=== PATIENT | male | born 1940 | race African-American/Black ===

== ENCOUNTER 2016-04-13 14:32 | Emergency (ER) | payer MEDICARE ==
--- NOTE | 2016-04-13 15:22 | Emergency Department Record ---
History of Present Illness - General Chief complaint: Extremity Problem Stated complaint: LEFT ELBOW PAIN Source: Patient, Family Mode of Arrival: Ambulatory Limitations: No limitations - History of Present Illness Initial comments: 76 yo male presents with left tender swallow area at the elbow. The onset was . He denies and injury. The area posterior and lateral to the left elbow has become tender, some swelling, and mildly red. No streaking up the arm. No history of bursitis or gout in the past. No fevers or chills. No nausea or vomiting. No shoulder pain. He has full range of the left elbow without significant discomfort. PCP is Sheryl Onset/Timin -: Days(s) Location: Left, Elbow History of Same: No Radiation: None Severity scale (1-10): 7 Quality: Aching Consistency: Constant Improves with: Nothing Worsens with: Nothing Associated Symptoms: Denies other symptoms - Related Data Home Medications Medication Instructions Recorded Confirmed Last Taken Amlodipine Besylate [Amlodipine 2.5 mg PO QHS 04/13/16 04/13/16 04/12/16 Besylate] Aspirin [Adult Low Dose Aspirin EC] 81 mg PO DAILY 04/13/16 04/13/16 04/13/16 Brimonidine Tartrate [Alphagan P] 1 drop EACH EYE ASDIR 04/13/16 04/13/16 Dexlansoprazole [Dexilant] 60 mg PO ASDIR 04/13/16 04/13/16 04/13/16 Dorzolamide HCl/Timolol Maleat 1 drop EACH EYE ASDIR 04/13/16 04/13/16 04/13/16 [Dorzolamide-Timolol Eye Drops] Imatinib Mesylate [Gleevec] 400 mg PO ASDIR 04/13/16 04/13/16 04/13/16 Latanoprost [Latanoprost] 1 drop EACH EYE ASDIR 04/13/16 04/13/16 04/13/16 Previous Rx's Medication Instructions Recorded Clindamycin HCl [Cleocin HCl] 300 mg PO TID #21 capsule 04/13/16 Allergies Allergy/AdvReac Type Severity Reaction Status Date / Time codeine AdvReac NAUSEA Verified 04/13/16 14:55 Travel Screening - Travel/Exposure Within Last 30 Days Have you traveled within the last 30 days?: No - Travel/Exposure Within Last Year Have you traveled outside the [place] in the last year?: No - Additonal Travel Details Have you been exposed to anyone with a communicable illness?: No - Travel Symptoms Symptom Screening: None Review of Systems Constitutional: Denies: Chills, Fever, Malaise, Weakness Eyes: Denies: Eye discharge, Eye pain, Photophobia, Vision change ENT: Denies: Congestion, Throat pain Respiratory: Denies: Cough, Dyspnea, Hemoptysis, Stridor, Wheezes Cardiovascular: Denies: Chest pain, Palpitations, Syncope Endocrine: Denies: Fatigue Gastrointestinal: Denies: Abdominal pain, Diarrhea, Nausea, Vomiting Genitourinary: Denies: Frequency, Hematuria Musculoskeletal: Reports: As per HPI, Arthralgia. Denies: Back pain, Joint swelling, Myalgia, Neck pain Skin: Reports: As per HPI, Change in color Neurological: Denies: Confusion, Headache Psychiatric: Denies: Anxiety, Suicidal thoughts Hematological/Lymphatic: Denies: Easy bleeding, Easy bruising, Swollen glands Past Medical History - SOCIAL HISTORY Smoking Status: Former smoker Alcohol Use: None Drug Use: None - RESPIRATORY Hx Respiratory Disorders: Yes Hx Sleep Apnea: Yes Hx of CPAP: Yes - CARDIOVASCULAR Hx Cardio Disorders: Yes Hx Cardiac Cath: Yes Hx Hypertension: Yes - NEURO Hx Neuro Disorders: Yes Comment:: legally blind d/t glaucoma - GI Hx GI Disorders: Yes Hx Reflux: Yes Hx Wt Loss/Wt Gain: Yes (loss of 30 #'s in year) Hx of Polyps: Yes Comment:: unintentional weight loss - Hx Genitourinary Disorders: Yes Hx Prostate Problems: Yes - ENDOCRINE Hx Endocrine Disorders: Yes - MUSCULOSKELETAL Hx Musculoskeletal Disorders: Yes Hx Arthritis: Yes - PSYCH Hx Psych Problems: No - HEMATOLOGY/ONCOLOGY Hx Hematology/Oncology Disorders: Yes Hx Cancer: Yes (CML) Hx Chemotherapy: Yes Family Medical History Any Significant Family History?: Yes Hx Cancer: Father *Cancer Comment: father-lung Physical Exam - General General Appearance: Alert, Oriented x3, Cooperative, No acute distress Limitations: No limitations - Head Head exam: Normal inspection - Eye Eye exam: Normal appearance, PERRL. negative: Conjunctival injection, Periorbital swelling - ENT ENT exam: Normal exam Ear exam: Normal external inspection Nasal Exam: Normal inspection Mouth exam: Normal external inspection Teeth exam: Normal inspection Throat exam: Normal inspection - Neck Neck exam: Normal inspection, Full ROM. negative: Tenderness - Respiratory Respiratory exam: Normal lung sounds bilaterally. negative: Respiratory distress - Cardiovascular Cardiovascular Exam: Regular rate, Normal rhythm, Normal heart sounds - Rectal Rectal exam: Deferred - exam: Deferred - Extremities Extremities exam: Full ROM (full ROM with any limitation or pain), Joint swelling, Normal capillary refill, Tenderness. negative: Normal inspection ( mild postrior elbow erythema and swelling, the bursa area is only minimally swollen) Image of Full Body: 1 - see inspection, mild erythema, mild bursal swelling, no fluctuance - Back Back exam: Reports: Normal inspection, Full ROM. Denies: Muscle spasm, Rash noted, Tenderness - Neurological Neurological exam: Alert, Normal gait, Oriented X3, Reflexes normal - Psychiatric Psychiatric exam: Normal affect, Normal mood - Skin Skin exam: Erythema Course Vital Signs 04/13/16 15:02 Temperature 98.9 F Pulse Rate 66 Respiratory 16 Rate Blood Pressure 128/88 Pulse Ox 97 - Reevaluation(s) Reevaluation #1: The CBC was reviewed WBC count is 3.0, this is similar to prior counts in the EMR 04/13/16 16:10 Reevaluation #2: XR reviewed. No bony abnormality, no effusion, soft tissue swelling noted. 04/13/16 16:52 Reevaluation #3: Labs reviewed No acute changes of the uric acid or CMP CRP mildly increased to 3.3 The patient was given antibiotics in the ED I recommend he call his PCP tomorrow for a recheck this week If not improved he may need an orthopedic referral. 04/13/16 17:13 Medical Decision Making - Lab Data Result diagrams: 04/13/16 15:57 04/13/16 15:57 Disposition Disposition: Discharge Clinical Impression: Bursitis Cellulitis Qualifiers: Site of cellulitis: extremity Site of cellulitis of extremity: upper extremity Laterality: left Qualified Code(s): L03.114 - Cellulitis of left upper limb Disposition: Home, Self-Care Condition: (1) Good Instructions: Cellulitis (ED), Elbow Bursitis (ED) Additional Instructions: Ice the elbow 2-3 times daily for 20 minutes Keep the area protected or padded if necessary Call your doctor tomorrow for close follow up You may need an orthopedic referral if not improving Prescriptions: Clindamycin HCl [Cleocin HCl] 300 mg PO TID #21 capsule Forms: Patient Portal Access Time of Disposition: 16:56
[2016-04-13 16:01] LABS: BASO % 0.3 % (0-6); EOS % 5.4 % (0-6); GRAN % 54.3 % (47-80); HEMATOCRIT 31.8 % (42.0-52.0); HEMOGLOBIN 10.8 gm/dl (14.0-18.0); LYMPH % 27.8 % (16-45); MEAN CELL VOLUME 106.4 fl (81-97); MEAN CORPUSCULAR HEMOGLOBIN 36.1 pg (27-33); MEAN PLATELET VOLUME 9.1 fl (7.4-10.4); MONO % 12.2 % (0-9); PLATELET COUNT 115 K/uL (130-400); RED BLOOD COUNT 2.99 M/uL (4.40-5.70); RED CELL DISTRIBUTION WIDTH 15.1 % (11.5-14.5)
[2016-04-13] MEDS ORDERED: CLINDAMYCIN 150 MG CAP PO ONE ×2 (16:10→17:21)
== END 2016-04-13 17:34 | disposition home or self-care (01) ==
LOC: ER 14:32
DX: L03.114 Cellulitis of left upper limb (principal); M70.32 Other bursitis of elbow, left elbow
CPT/HCPCS: 80048; 84550; 85025; 86140; 99283; 99284

== ENCOUNTER 2016-05-08 10:12 | Day surgery (SDC) | payer MEDICARE ==
[2016-05-08] MEDS ORDERED: PROPOFOL 10 MG/ML VIAL IV ONE (14:00)
[2016-05-08] MEDS ORDERED: FENTANYL PF 100MCG/2ML VIAL IV ONE (14:00)
[2016-05-08] MEDS ORDERED: LIDOCAINE 2% MDV (20MG/ML) 20ML VIAL IV ONE (14:00)
[2016-05-08 16:18] LABS: BLOOD UREA NITROGEN 12 mg/dL (9-20); CREATININE 1.1 mg/dL (0.66-1.25); EST GLOMERULAR FILTRATION RATE > 60 ml/min
--- NOTE | 2016-05-13 10:20 | Operative Note ---
DATE OF SURGERY: 05/08/2016 OPERATION: ESOPHAGOGASTRODUODENOSCOPY with biopsy. PREOPERATIVE DIAGNOSIS: Anorexia, weight loss, and dyspepsia. POSTOPERATIVE DIAGNOSIS: Moderate nonerosive gastritis, otherwise normal upper endoscopy. PROCEDURE: After informed consent was obtained from the patient, he was placed in the left lateral decubitus position in the endoscopy suite, sedated and monitored by the department of anesthesia. A well-lubricated [id number] gastroscope was placed in the posterior oropharynx and under direct visualization passed to the proximal esophagus. The endoscope was advanced through the proximal, mid, and distal esophagus. The GE junction and esophagus were unremarkable. The gastric body and the antrum demonstrated [id number] diffuse patchy erythema which involved primarily the body and antrum. The pylorus, duodenal bulb, and sweep were unremarkable. J-turn views of the proximal stomach were unrevealing. The endoscope was then straightened. Antral and distal gastric body biopsies were obtained. The endoscope was removed from the patient with no new findings noted. RECOMMENDATIONS: We will discuss further imaging possibilities with the patient but given his persistent dyspepsia and weight loss, further testing seems reasonable. As always, thank you for allowing me to participate in the healthcare of your patients. Tom Mae DO CC: Dr. Vita DOLL
== END 2016-05-08 12:56 | disposition home or self-care (01) ==
LOC: HOP 10:12
PROVIDERS: ATTEND Internal Medicine Gastroenterology
DX: K29.30 Chronic superficial gastritis without bleeding (principal); R10.13 Epigastric pain; R63.0 Anorexia; I10 Essential (primary) hypertension; C95.90 Leukemia, unspecified not having achieved remission
CPT/HCPCS: 84520; 82565; 43239; 00740; J3010

== ENCOUNTER 2016-11-03 17:30 | Emergency (ER) | payer MEDICARE ==
--- NOTE | 2016-11-03 18:30 | Emergency Department Record ---
History of Present Illness - General Chief complaint: ENT Stated complaint: LT EAR RINGING Time Seen by Provider: 11/03/16 18:21 Source: Patient Mode of Arrival: Ambulatory Limitations: No limitations - History of Present Illness Initial comments: 76 yo male presents to ED with a CC of ringing in the left ear for the past 1-2 days. Patient reports that he noticed decreased hearing in the left ear about 3 days ago, ringing began this afternoon while on the phone. Patient denies drainage from the ear or trauma to the ear, reports that he only takes a baby ASA daily when asked about aspirin use. Patient is currently undergoing chemo for leukemia. Onset/Timin -: Days(s) Location: L ear Severity: Mild Consistency: Intermittent Improves with: None Worsens with: None Associated Symptoms: Hearing loss - Related Data Home Medications Medication Instructions Recorded Confirmed Last Taken Finasteride [Proscar] 5 mg PO DAILY 11/03/16 11/03/16 11/03/16 Tamsulosin HCl [Flomax] 0.4 mg PO DAILY 11/03/16 11/03/16 11/03/16 Allergies Allergy/AdvReac Type Severity Reaction Status Date / Time codeine AdvReac NAUSEA Verified 11/03/16 18:13 Travel Screening - Travel/Exposure Within Last 30 Days Have you traveled within the last 30 days?: No Review of Systems Constitutional: Denies: Chills, Fever, Malaise, Night sweats Eyes: Denies: Eye discharge, Eye pain ENT: Reports: Other (ringing in the ear). Denies: Congestion, Ear pain, Epistaxis Respiratory: Denies: Cough, Dyspnea Cardiovascular: Denies: Chest pain, Dyspnea on exertion Endocrine: Denies: Fatigue, Heat or cold intolerance Gastrointestinal: Denies: Nausea, Vomiting Genitourinary: Denies: Incontinence, Retention Musculoskeletal: Denies: Arthralgia, Back pain, Gout, Joint swelling Skin: Denies: Bruising, Change in color Neurological: Denies: Abnormal gait, Confusion, Headache, Tingling Psychiatric: Denies: Anxiety Hematological/Lymphatic: Denies: Anemia, Blood Clots Past Medical History - SOCIAL HISTORY Smoking Status: Former smoker Alcohol Use: None Drug Use: None - RESPIRATORY Hx Respiratory Disorders: Yes Hx Sleep Apnea: Yes Hx of CPAP: Yes - CARDIOVASCULAR Hx Cardio Disorders: Yes Hx Cardiac Cath: Yes Hx Hypertension: Yes - NEURO Hx Neuro Disorders: Yes Comment:: legally blind d/t glaucoma - GI Hx GI Disorders: Yes Hx Reflux: Yes Hx Wt Loss/Wt Gain: Yes Hx of Polyps: Yes - Hx Genitourinary Disorders: Yes Hx Prostate Problems: Yes - ENDOCRINE Hx Endocrine Disorders: No - MUSCULOSKELETAL Hx Musculoskeletal Disorders: Yes Hx Arthritis: Yes - PSYCH Hx Psych Problems: No - HEMATOLOGY/ONCOLOGY Hx Hematology/Oncology Disorders: Yes Hx Cancer: Yes (CML) Hx Chemotherapy: Yes Family Medical History Any Significant Family History?: Yes Hx Cancer: Father *Cancer Comment: father-lung Physical Exam - General General Appearance: Alert, Oriented x3, Cooperative, No acute distress Limitations: No limitations - Head Head exam: Atraumatic, Normocephalic, Normal inspection Head exam detail: negative: Abrasion, Contusion, Meade's sign, General tenderness, Hematoma, Laceration - Eye Eye exam: Normal appearance. negative: Conjunctival injection, Periorbital swelling, Periorbital tenderness, Scleral icterus - ENT Ear exam: Other (TMs appear normal in color, intact, mild fluid behind the TMs bilaterally. Very little cerumen left.). negative: Auricular hematoma, Auricular trauma Nasal Exam: negative: Active bleeding, Discharge, Dried blood, Foreign body Mouth exam: negative: Drooling, Laceration, Muffled voice, Tongue elevation - Neck Neck exam: Normal inspection. negative: Meningismus, Tenderness - Respiratory Respiratory exam: Normal lung sounds bilaterally. negative: Respiratory distress, Rhonchi, Stridor, Wheezes - Cardiovascular Cardiovascular Exam: Regular rate, Normal rhythm, Normal heart sounds - GI/Abdominal GI/Abdominal exam: Soft. negative: Rebound, Rigid, Tenderness - Rectal Rectal exam: Deferred - exam: Deferred - Extremities Extremities exam: Normal inspection. negative: Tenderness - Back Back exam: Denies: CVA tenderness (R), CVA tenderness (L) - Neurological Neurological exam: Alert, Normal gait, Oriented X3 - Psychiatric Psychiatric exam: Normal affect, Normal mood - Skin Skin exam: Normal color. negative: Abrasion Type of lesion: negative: abrasion Course Vital Signs 11/03/16 18:10 Temperature 97.9 F Pulse Rate 68 Respiratory 16 Rate Blood Pressure 130/73 Pulse Ox 97 - Reevaluation(s) Reevaluation #1: 11/03/16 18:35 Patient was seen and examined, other than mild fluid behind the TMs bilaterally , TMs appear normal. Offered to perform ASA level, patient declined stating he often doesn't take his baby ASA daily. Will refer to Dr. Guzman (ENT) for further evaluation of his symptoms. Patient and family agree with the plan of care as discussed. Disposition Disposition: Discharge Clinical Impression: Tinnitus, left Disposition: Home, Self-Care Condition: (2) Stable Instructions: Tinnitus (ED) Additional Instructions: Return to ED if your symptoms worsen or if you have any concerns. Call Dr. Guzman for a follow-up appointment regarding your tinnitis. YTou may try antihistamine medications which may improve the drainage of fluid behind the ear drum. Referrals: [facility] [Provider Group] ANISA GUZMAN [DOCTOR OF OSTEOPATH] - Forms: Patient Portal Access Time of Disposition: 18:30 Quality - Quality Measures Quality Measures: N/A - Blood Pressure Screening Does Patient Have Any of the Following: No Blood Pressure Classification: Pre-Hypertensive BP Reading Systolic Measurement: 130 Diastolic Measurement: 73 Screening for High Blood Pressure: < Pre-Hypertensive BP, F/U Documented > [ [id number]] Pre-Hypertensive Follow-up Interventions: Referral to alternative/primary care provider.
== END 2016-11-03 18:51 | disposition home or self-care (01) ==
LOC: ER 17:30
DX: H93.12 Tinnitus, left ear (principal)
CPT/HCPCS: 99282

== ENCOUNTER 2016-11-29 16:13 | Emergency (ER) | payer MEDICARE ==
[2016-11-29] MEDS ORDERED: 0.9 % SODIUM CHLORIDE 1000ML 1,000 ML IV SCH (16:30)
--- NOTE | 2016-11-29 16:31 | Emergency Department Record ---
History of Present Illness - General Chief Complaint: Dizziness Stated Complaint: DIZZY Time Seen by Provider: 11/29/16 16:27 Source: Patient Mode of Arrival: EMS Limitations: No limitations - History of Present Illness Initial Comments: 76 yo male presents to ED for evaluation of sudden onset dizziness that began approximately 1.5 hours ago while walking to the mailbox. Patient reports that he was able to sit down with improvement of his symptoms. Patient denies recent illness, headache, or focal weakness on examination. Patient does however report minor "fluttering" in his chest around the time that his symptoms began. Complaint: Dizziness Onset/Timin -: Hour(s) Timing: Sudden onset Description: Difficulty walking, Lightheadedness, Off-balance History of Same: No History of Trauma: No Severity: Moderate Improves With: Rest Worsens With: Position - [place] Coma Scale Eye Response: (4) Open spontaneously Motor Response: (6) Obeys commands Verbal Response: (5) Oriented [place] Total: 15 - Symptoms of Stroke Onset of Symptoms Date: 11/29/16 Onset of Symptoms Time: 15:40 Symptom Onset Unknown: Yes Symptoms of stroke: Dizziness, Unable to Walk - Related Data Allergies Allergy/AdvReac Type Severity Reaction Status Date / Time codeine AdvReac NAUSEA Verified 11/29/16 16:23 Travel Screening - Travel/Exposure Within Last 30 Days Have you traveled within the last 30 days?: No - Travel/Exposure Within Last Year Have you traveled outside the [place] in the last year?: No - Additonal Travel Details Have you been exposed to anyone with a communicable illness?: No - Travel Symptoms Symptom Screening: None Review of Systems Constitutional: Denies: Chills, Fever, Malaise, Night sweats Eyes: Denies: Eye discharge, Eye pain ENT: Denies: Congestion, Ear pain, Epistaxis Respiratory: Denies: Cough, Dyspnea Cardiovascular: Reports: Palpitations. Denies: Chest pain, Dyspnea on exertion Endocrine: Denies: Fatigue, Heat or cold intolerance Gastrointestinal: Denies: Nausea, Vomiting Genitourinary: Denies: Incontinence, Retention Musculoskeletal: Denies: Arthralgia, Back pain, Gout, Joint swelling Skin: Denies: Bruising, Change in color Neurological: Denies: Abnormal gait, Confusion, Headache, Seizure Psychiatric: Denies: Anxiety Hematological/Lymphatic: Denies: Anemia, Blood Clots Past Medical History - SOCIAL HISTORY Smoking Status: Former smoker Alcohol Use: None Drug Use: None - RESPIRATORY Hx Respiratory Disorders: Yes Hx Sleep Apnea: Yes Hx of CPAP: Yes - CARDIOVASCULAR Hx Cardio Disorders: Yes Hx Cardiac Cath: Yes (no stent) Hx Hypertension: Yes - NEURO Hx Neuro Disorders: Yes Comment:: legally blind d/t glaucoma - GI Hx GI Disorders: Yes Hx Reflux: Yes Hx Wt Loss/Wt Gain: Yes Hx of Polyps: Yes - Hx Genitourinary Disorders: Yes Hx Prostate Problems: Yes - ENDOCRINE Hx Endocrine Disorders: No - MUSCULOSKELETAL Hx Musculoskeletal Disorders: Yes Hx Arthritis: Yes - PSYCH Hx Psych Problems: No - HEMATOLOGY/ONCOLOGY Hx Hematology/Oncology Disorders: Yes Hx Cancer: Yes (CML) Hx Chemotherapy: Yes (last night) Family Medical History Any Significant Family History?: Yes Hx Cancer: Father *Cancer Comment: father-lung Physical Exam - General General Appearance: Alert, Oriented x3, Cooperative, Mild distress Limitations: No limitations - Head Head exam: Atraumatic, Normocephalic, Normal inspection Head exam detail: negative: Abrasion, Contusion, Meade's sign, General tenderness, Hematoma, Laceration - Eye Eye exam: Normal appearance. negative: Conjunctival injection, Periorbital swelling, Periorbital tenderness, Scleral icterus - ENT Ear exam: negative: Auricular hematoma, Auricular trauma Nasal Exam: negative: Active bleeding, Discharge, Dried blood, Foreign body Mouth exam: negative: Drooling, Laceration, Muffled voice, Tongue elevation - Neck Neck exam: Normal inspection. negative: Meningismus, Tenderness - Respiratory Respiratory exam: Normal lung sounds bilaterally. negative: Rales, Respiratory distress, Rhonchi, Stridor - Cardiovascular Cardiovascular Exam: Normal rhythm, Normal heart sounds, Bradycardia - GI/Abdominal GI/Abdominal exam: Soft. negative: Rebound, Rigid, Tenderness - Rectal Rectal exam: Deferred - exam: Deferred - Extremities Extremities exam: Normal inspection. negative: Calf tenderness, Pedal edema, Tenderness - Back Back exam: Denies: CVA tenderness (R), CVA tenderness (L) - Neurological Neurological exam: Alert, CN II-XII intact, Normal gait, Oriented X3. negative : Motor sensory deficit - Psychiatric Psychiatric exam: Normal affect, Normal mood - Skin Skin exam: Normal color. negative: Abrasion Type of lesion: negative: abrasion Course Vital Signs 10/21/17 10/21/17 16:14 16:26 Temperature 98.6 F Pulse Rate 44 L Pulse Rate [ 46 L Pulse Ox Probe] Respiratory 20 18 Rate Blood Pressure 142/74 Blood Pressure 135/74 [Right Arm] Pulse Ox 100 98 - Reevaluation(s) Reevaluation #1: 11/29/16 16:53 Labs reviewed, WBC 1.9, Hgb 10.6, HCT 31, Platelets 120. Labs are otherwise grossly unremarkable for an acute process. Will initiate transfer to [facility] for further evaluation of his symptomatic bradycardia. Reevaluation #2: 11/29/16 17:23 Case was discussed with Dr. Watson at [facility], will accept transfer for further evaluation. Medical Decision Making - Lab Data Result diagrams: 11/29/16 16:30 11/29/16 16:30 Disposition Disposition: Transfer Clinical Impression: Bradycardia, Pancytopenia Leukemia Qualifiers: Leukemia type: unspecified Leukemia Active/Remission status: without remission Qualified Code(s): C95.90 - Leukemia, unspecified not having achieved remission Disposition: Acute Care Hospital Transfer Transfer To: [facility] Reason For Transfer: Symptomatic bradycardia Accepting Physician: Walter Time Discussed w/Accepting Physician: 17:24 Condition: (3) Guarded Forms: Patient Portal Access Time of Disposition: 17:24 Quality - Quality Measures Quality Measures: N/A - Blood Pressure Screening Does Patient Have Any of the Following: Active Dx of HTN Blood Pressure Classification: Hypertensive Reading Systolic Measurement: 142 Diastolic Measurement: 74 Screening for High Blood Pressure: Patient Exclusion, Hx of HTN [G9744]
[2016-11-29 16:40] LABS: BASO % 1.5 % (0-6); EOS % 6.7 % (0-6); GRAN % 40.3 % (47-80); HEMATOCRIT 31.6 % (42.0-52.0); HEMOGLOBIN 10.6 gm/dl (14.0-18.0); LYMPH % 38.1 % (16-45); MEAN CELL VOLUME 104.3 fl (81-97); MEAN CORPUSCULAR HGB CONC 33.5 g/dl (32-36); MONO % 13.4 % (0-9); PLATELET COUNT 120 K/uL (130-400); RED BLOOD COUNT 3.03 M/uL (4.40-5.70); RED CELL DISTRIBUTION WIDTH 14.2 % (11.5-14.5); WHITE BLOOD COUNT W/O DIFF 1.9 K/uL (4.2-12.2)
[2016-11-29 16:41] LABS: MEAN CORPUSCULAR HEMOGLOBIN 34.9 pg (27-33)
[2016-11-29 17:01] LABS: ALB/GLOB RATIO 1.3 (1.1-1.8); ALBUMIN 3.1 g/dL (4.0-5.0); ALKALINE PHOSPHATASE 69 U/L (40-129); ALT/SGPT 14 U/L (<41); AST/SGOT 24 U/L (10.0-50.0); BLOOD UREA NITROGEN 12 mg/dL (8-23); EST GLOMERULAR FILTRATION RATE > 60 mL/min; GLUCOSE,RANDOM 106 mg/dL (74-109); TOTAL PROTEIN 5.4 g/dL (6.6-8.7)
== END 2016-11-29 18:50 | disposition short-term general hospital (02) ==
LOC: ER 16:13
DX: R00.1 Bradycardia, unspecified (principal); D61.818 Other pancytopenia; R42 Dizziness and giddiness; R26.2 Difficulty in walking, not elsewhere classified; I10 Essential (primary) hypertension; C92.10 Chronic myeloid leukemia, BCR/ABL-positive, not having achieved remission; Z87.891 Personal history of nicotine dependence
CPT/HCPCS: 80053; 83735; 84484; 85025; 93005; 93010; 96360; 99285; J7030

== ENCOUNTER 2017-08-20 10:09 | Day surgery (SDC) | payer MEDICARE ==
[2017-08-20] MEDS ORDERED: LIDOCAINE 1% MDV (10MG/ML) 20ML VIAL SQ ONE (10:10)
[2017-08-20] MEDS ORDERED: PROPOFOL 10 MG/ML VIAL IV ONE (10:10)
--- NOTE | 2017-08-21 12:50 | Operative Note ---
DATE OF SURGERY: 08/20/2017 OPERATION: COLONOSCOPY with cold forceps polypectomy x2. PREOPERATIVE DIAGNOSIS: Personal history of colon polyps. POSTOPERATIVE DIAGNOSIS: Transverse colon polyp and descending colon polyp, each removed with a cold forceps. PREPARATION QUALITY: Good. ESTIMATED BLOOD LOSS: Minimum. SPECIMENS: As aforementioned. COMPLICATIONS: None apparent. PROCEDURE: After informed consent was obtained from the patient, he was placed in the left lateral decubitus position in the endoscopy suite, sedated and monitored by the department of anesthesia. Digital rectal exam was performed which was unremarkable. A well-lubricated [id number] colonoscope was inserted into the rectum and advanced to the cecum. Preparation quality was good. The cecum, ileocecal valve, appendiceal orifice, and ascending colon were unremarkable. In the transverse colon there was a diminutive polyp removed with a cold forceps. The remainder of the transverse colon was unremarkable. The descending colon revealed another diminutive polyp removed with a cold forceps. The remainder of the descending colon and sigmoid colon and rectum were unremarkable. J-turn views of the anorectum were unremarkable. The endoscope was straightened, the rectal ampulla deflated, and the endoscope was removed. RECOMMENDATIONS: The patient should resume his medications and diet. Further recommendations will be forthcoming once tissue histology is available. At this point, I anticipate a repeat colonoscopy in 5 years. As always, thank you for allowing me to participate in the healthcare of your patients. CC: Sunday Khan MD [facility]
== END 2017-08-20 12:36 | disposition home or self-care (01) ==
LOC: HOP 10:09
PROVIDERS: ATTEND Internal Medicine Gastroenterology
DX: Z12.11 Encounter for screening for malignant neoplasm of colon (principal); Z86.010 Personal history of colon polyps; D12.3 Benign neoplasm of transverse colon; D12.4 Benign neoplasm of descending colon; I10 Essential (primary) hypertension; K21.9 Gastro-esophageal reflux disease without esophagitis; C95.90 Leukemia, unspecified not having achieved remission

== ENCOUNTER 2018-10-22 13:30 | Emergency (ER) | payer MEDICARE ==
[2018-10-22] MEDS ORDERED: Diph,Pert(Acell),Tet Vac 0.5 ML SYR IM ONE (13:46)
--- NOTE | 2018-10-22 13:49 | Emergency Department Record ---
History of Present Illness - General Chief Complaint: Fall Injury Stated Complaint: FULL INJURY-LACERATION Time Seen by Provider: 10/22/18 13:32 Source: Patient Mode of Arrival: Wheelchair Limitations: No limitations - History of Present Illness Initial Comments: The patient is here due to tripping and falling at home a half hour ago and hitting his chin on the dresser sustaining a laceration under the R chin. He denies any head injury, neck pain, LOC, CUELLAR, or any other injury. His td is not utd. MD Complaint: Fall Onset/Timin -: Minutes(s) Fall From: Standing When Fall Occurred: Just prior to arrival Fall Witnessed: Yes, by family Place Fall Occurred: Home Loss of Consciousness: None Prolonged Down Time?: No Symptoms Prior to Fall: None Location: Face Severity: Mild Severity scale (1-10): 1 Context: Tripped/slipped Associated Symptoms: Denies - [place] Coma Scale Eye Response: (4) Open spontaneously Motor Response: (6) Obeys commands Verbal Response: (5) Oriented [place] Total: 15 - Related Data Previous Rx's Medication Instructions Recorded Cephalexin [Keflex] 500 mg PO TID #15 cap 10/22/18 Allergies Allergy/AdvReac Type Severity Reaction Status Date / Time ciprofloxacin Allergy Severe DIZZINESS Unverified 08/31/18 15:46 codeine AdvReac NAUSEA Unverified 08/31/18 15:46 Travel Screening - Travel/Exposure Within Last 30 Days Have you traveled within the last 30 days?: No - Travel/Exposure Within Last Year Have you traveled outside the [place] in the last year?: No - Additonal Travel Details Have you been exposed to anyone with a communicable illness?: No - Travel Symptoms Symptom Screening: None Review of Systems Constitutional: Denies: Chills, Fever Past Medical History - SOCIAL HISTORY Smoking Status: Former smoker Alcohol Use: None Drug Use: None - RESPIRATORY Hx Respiratory Disorders: Yes Hx Sleep Apnea: Yes Hx of CPAP: Yes Comment:: fluid on lungs from medication- Gleevec, drained last week at [facility] - CARDIOVASCULAR Hx Cardio Disorders: Yes Hx Cardiac Cath: Yes (no stent) Hx Chest Pain: Yes (fluid lungs, as above, resolved) Hx Hypertension: Yes - NEURO Hx Neuro Disorders: Yes Comment:: legally blind d/t glaucoma - GI Hx GI Disorders: Yes Hx Wt Loss/Wt Gain: Yes - Hx Genitourinary Disorders: Yes Hx Prostate Problems: Yes - ENDOCRINE Hx Endocrine Disorders: No - MUSCULOSKELETAL Hx Musculoskeletal Disorders: Yes Hx Arthritis: Yes - PSYCH Hx Psych Problems: No - HEMATOLOGY/ONCOLOGY Hx Hematology/Oncology Disorders: Yes Hx Cancer: Yes (CML) Hx Chemotherapy: Yes (last night) Family Medical History Any Significant Family History?: Yes Hx Cancer: Father *Cancer Comment: father-lung Hx Diabetes: Father, Brother/Sister Hx Heart Disease: Mother Hx Resp Disorders: Father *Resp Comment: lung cancer Physical Exam - General General Appearance: Alert, Oriented x3, Cooperative, No acute distress - Head Head exam: Atraumatic, Normocephalic Image of Chin: 1 - Area of 3 cm lac. - Eye Eye exam: Normal appearance - ENT ENT exam: negative: Normal exam (There is a 3 cm superficial lac under the R mandible. There is no mandibular tenderness and no malloclussion. The patient has normal speech and swallowing.) - Neck Neck exam: Normal inspection, Full ROM. negative: Tenderness (There is no Cspine tenderness.) - Extremities Extremities exam: Normal inspection, Full ROM, Normal capillary refill. negative: Tenderness - Neurological Neurological exam: Alert, Oriented X3. negative: Altered, Motor sensory deficit Course Vital Signs 10/22/18 13:33 Temperature 97.8 F Pulse Rate 65 Respiratory 16 Rate Blood Pressure 131/73 Pulse Ox 96 - Reevaluation(s) Reevaluation #1: Procedure note: The R inferior mandible laceration was anesth. with 3 cc's Lido 1% with Epi. The wound was prepped with betadine and lavaged with sterile saline. The wound was explored and was not down to muscle or bone. The lac was then closed with 6 5.0 nylon sutures. There were no complications. 10/22/18 14:26 Reevaluation #2: The patient was doing very well after the procedure. He had normal speech and no Cuellar or nausea and was ready for home. 10/22/18 14:27 Disposition Disposition: Discharge Clinical Impression: Facial laceration Qualifiers: Encounter type: initial encounter Qualified Code(s): S01.81XA - Laceration without foreign body of other part of head, initial encounter Disposition: Home, Self-Care Condition: (2) Stable Instructions: Laceration (ED) Additional Instructions: Keep dry for 2 days then no soaking or swimming. Take the Keflex as directed. Have the sutures removed in 10 days. Return to the ER for any problems or signs of infection. Prescriptions: Cephalexin [Keflex] 500 mg PO TID #15 cap Forms: Patient Portal Access Time of Disposition: 14:30 Quality - Quality Measures Quality Measures: N/A - Blood Pressure Screening View Details: Yes Does Patient Have Any of the Following: No Blood Pressure Classification: Pre-Hypertensive BP Reading Systolic Measurement: 131 Diastolic Measurement: 73 Screening for High Blood Pressure: < Pre-Hypertensive BP, F/U Documented > [G8950] Pre-Hypertensive Follow-up Interventions: Referral to alternative/primary care provider.
== END 2018-10-22 14:37 | disposition home or self-care (01) ==
LOC: ER 13:30
DX: S01.81XA Laceration without foreign body of other part of head, initial encounter (principal); W01.190A Fall on same level from slipping, tripping and stumbling with subsequent striking against furniture, initial encounter; Y92.009 Unspecified place in unspecified non-institutional (private) residence as the place of occurrence of the external cause; Z87.891 Personal history of nicotine dependence
CPT/HCPCS: 12013; 90715; 96372; 99283; 99284

== ENCOUNTER 2018-11-01 15:13 | Emergency (ER) | payer MEDICARE ==
--- NOTE | 2018-11-01 15:30 | Emergency Department Record ---
History of Present Illness - General Chief Complaint: Suture removal Time Seen by Provider: 11/01/18 15:18 Source: Patient Mode of arrival: Ambulatory Limitations: No limitations - History of Present Illness Initial Comments: 78 yo female presents for wound check and possible suture removal. He has a laceration on the right chin. No complaints since the injury. No fever, red ness or pus. MD Complaint: Suture/staple removal, Wound re-check -: Days(s) (10) Initial Visit For: Laceration Returns Today for: Staple/stitch removal, Wound recheck Symptoms Since Prior Visit: Improved Associated Symptoms: None Treatments Prior to Arrival: Other (sutures) - Related Data Previous Rx's Medication Instructions Recorded Cephalexin [Keflex] 500 mg PO TID #15 cap 10/22/18 Allergies Allergy/AdvReac Type Severity Reaction Status Date / Time ciprofloxacin Allergy Severe DIZZINESS Unverified 08/31/18 15:46 codeine AdvReac NAUSEA Unverified 08/31/18 15:46 Review of Systems Constitutional: Denies: Chills, Fever, Weakness Eyes: Denies: Eye discharge ENT: Denies: Congestion, Throat pain Respiratory: Denies: Cough, Dyspnea Cardiovascular: Denies: Chest pain, Syncope Endocrine: Denies: Fatigue Gastrointestinal: Denies: Abdominal pain, Diarrhea, Nausea, Vomiting Genitourinary: Denies: Dysuria, Frequency, Hematuria Musculoskeletal: Denies: Arthralgia, Back pain, Myalgia Skin: Reports: Other (laceration). Denies: Bruising, Change in color, Rash Neurological: Denies: Headache, Vertigo, Weakness Psychiatric: Denies: Anxiety Hematological/Lymphatic: Denies: Blood Clots, Easy bleeding, Easy bruising Past Medical History - SOCIAL HISTORY Smoking Status: Former smoker Drug Use: None - RESPIRATORY Hx Respiratory Disorders: Yes Hx Sleep Apnea: Yes Hx of CPAP: Yes Comment:: fluid on lungs from medication- Gleevec, drained last week at [facility] - CARDIOVASCULAR Hx Cardio Disorders: Yes Hx Cardiac Cath: Yes (no stent) Hx Chest Pain: Yes (fluid lungs, as above, resolved) Hx Hypertension: Yes - NEURO Hx Neuro Disorders: Yes Comment:: legally blind d/t glaucoma - GI Hx GI Disorders: Yes Hx Wt Loss/Wt Gain: Yes - Hx Genitourinary Disorders: Yes Hx Prostate Problems: Yes - ENDOCRINE Hx Endocrine Disorders: No - MUSCULOSKELETAL Hx Musculoskeletal Disorders: Yes Hx Arthritis: Yes - PSYCH Hx Psych Problems: No - HEMATOLOGY/ONCOLOGY Hx Hematology/Oncology Disorders: Yes Hx Cancer: Yes (CML) Hx Chemotherapy: Yes (last night) Family Medical History Hx Cancer: Father *Cancer Comment: father-lung Hx Diabetes: Father, Brother/Sister Hx Heart Disease: Mother Hx Resp Disorders: Father *Resp Comment: lung cancer Physical Exam - General General Appearance: Alert, Oriented x3, Cooperative, No acute distress Limitations: No limitations - Head Head exam: Atraumatic, Normal inspection Head exam detail: Other (Healing chin laceration) - Eye Eye exam: Normal appearance, PERRL. negative: Conjunctival injection, Scleral icterus - ENT ENT exam: Normal exam, Mucous membranes moist Ear exam: Normal external inspection Nasal Exam: Normal inspection Mouth exam: Normal external inspection - Neurological Neurological exam: Alert, Oriented X3 - Psychiatric Psychiatric exam: Normal affect, Normal mood - Skin Skin exam: Other Course - Reevaluation(s) Reevaluation #1: 11/01/18 15:21 Sutures removed without difficulty No signs of complications with healing We discussed home care while the wound continues to heal We discussed reasons to return to the ED for recheck as well Disposition Disposition: Discharge Clinical Impression: Visit for suture removal Disposition: Home, Self-Care Condition: (1) Good Instructions: Stitches Removal (ED) Additional Instructions: Return if you have any concerns with the continued healing of the laceration Forms: Patient Portal Access Time of Disposition: 15:40 Quality - Quality Measures Quality Measures: N/A - Blood Pressure Screening Does Patient Have Any of the Following: No Blood Pressure Classification: Hypertensive Reading Systolic Measurement: 144 Diastolic Measurement: 70 Screening for High Blood Pressure: < Pre-Hypertensive BP, F/U Documented > [G8950] Pre-Hypertensive Follow-up Interventions: Referral to alternative/primary care provider.
== END 2018-11-01 15:47 | disposition home or self-care (01) ==
LOC: ER 15:13
DX: Z48.02 Encounter for removal of sutures (principal)